=== PATIENT | male | born 1990 | race Caucasian/White ===

== ENCOUNTER 2022-05-14 11:18 | Emergency (ER) | payer SELFPAY ==
[2022-05-14 13:20] VITALS: BP 121/84; PULSE 80
== END 2022-05-14 13:20 | disposition home or self-care (01) ==
LOC: MW.ED 11:18
DX: H00.025 Hordeolum internum left lower eyelid (principal); F17.210 Nicotine dependence, cigarettes, uncomplicated
CPT/HCPCS: 99283

== ENCOUNTER 2023-05-09 03:44 | Emergency (ER) | payer BC ==
[2023-05-09] MEDS ORDERED: Morphine 4 MG/ML Syringe IVPUSH ONE (03:57)
[2023-05-09] MEDS ORDERED: Sodium Chloride 0.9% 1,000 ML IV ONE ×2 (03:57→05:15)
[2023-05-09] MEDS ORDERED: Ketorolac 30 MG/ML SDV IVPUSH ONE (03:57)
[2023-05-09] MEDS ORDERED: Ondansetron 4 MG/2 ML SDV IVPUSH ONE (03:57)
[2023-05-09 03:58] VITALS: PULSE 72
[2023-05-09] MEDS ORDERED: Ketorolac 30 MG/ML SDV ONE (04:02)
[2023-05-09 04:07] LABS: BASOPHILS ABSOLUTE AUTO 0.04 K/uL (0.00-0.20); BASOPHILS PERCENT AUTO 0.4 % (0.0-1.0); EOSINOPHILS ABSOLUTE AUTO 0.12 K/uL (0.00-0.45); EOSINOPHILS PERCENT AUTO 1.1 % (0.0-6.0); HEMOGLOBIN 15.5 g/dL (14.0-18.0); IMMATURE GRAN ABSOLUTE AUTO 0.03 K/uL (0.00-0.05); IMMATURE GRAN PERCENT AUTO 0.3 % (0.0-0.4); LYMPHOCYTES PERCENT AUTO 22.7 % (24.0-44.0); MEAN CORPUSCULAR HEMOGLOBIN 29.9 pg (28.0-32.0); MEAN CORPUSCULAR HGB CONC 34.4 g/dL (32.0-36.0); MEAN CORPUSCULAR VOLUME 86.9 fL (83.0-99.0); MEAN PLATELET VOLUME 9.2 fL (9.4-12.4); MONOCYTES ABSOLUTE AUTO 1.01 K/uL (0.00-0.80); MONOCYTES PERCENT AUTO 9.6 % (0.0-8.0); NEUTROPHILS ABSOLUTE AUTO 6.96 K/uL (1.80-7.70); NEUTROPHILS PERCENT AUTO 65.9 % (41.0-71.0); PLATELET COUNT,PLT 284 K/uL (150-400); RED BLOOD CELL COUNT 5.18 M/uL (4.52-5.90); WHITE BLOOD CELL COUNT,WBC 10.56 K/uL (3.9-11.3)
[2023-05-09 04:31] LABS: A/G RATIO 1.4 (0.9-1.6); ALBUMIN 4.1 g/dL (3.4-5.0); BILIRUBIN TOTAL 0.7 mg/dL (0.2-1.0); CALCIUM 9.4 mg/dL (8.5-10.1); CARBON DIOXIDE,CO2 28.9 mmol/L (21.0-32.0); CREATININE 1.2 mg/dL (0.8-1.3); EST CRCL DRUG DOSING (CG) 92.09 mL/min; POTASSIUM,K 3.4 mmol/L (3.5-5.1)
[2023-05-09] MEDS ORDERED: HYDROmorphone 1 MG/ML Syringe IVPUSH ONE (04:56)
[2023-05-09 06:13] LABS: APPEARANCE,URINE SLT CLOUDY; COLOR,URINE YELLOW; GLUCOSE,URINE NEGATIVE (NEGATIVE); KETONES,URINE NEGATIVE (NEGATIVE); LEUKOCYTE ESTERASE,URINE NEGATIVE (NEGATIVE); NITRITE,URINE NEGATIVE (NEGATIVE); OCCULT BLOOD,URINE LARGE (NEGATIVE); PROTEIN,URINE TRACE mg/dL (NEGATIVE); UROBILINOGEN,URINE 0.2 EU/dL (<2.0)
[2023-05-09 06:19] LABS: BILIRUBIN,URINE SMALL (NEGATIVE)
[2023-05-09 06:20] LABS: BACTERIA,URINE FEW (NEGATIVE); EPITHELIAL CELLS,URINE RARE (NONE-FEW); RBC,URINE 20-30 (0-2/HPF); WBC,URINE 0-4 (0-5/HPF)
[2023-05-09 06:32] VITALS: BP 137/77
== END 2023-05-09 06:31 | disposition home or self-care (01) ==
LOC: MW.ED 03:44
DX: N20.2 Calculus of kidney with calculus of ureter (principal)
CPT/HCPCS: 36415; 74176; 80053; 81001; 83690; 85025; 96361; 96374; 96375; 99284; J1170; J1885; J2270; J2405; J7030

== ENCOUNTER 2025-04-27 09:36 | Emergency (ER) | payer BC, MEDICAID ==
[2025-04-27 10:02] VITALS: BP 141/84; PULSE 82
== END 2025-04-27 10:47 | disposition home or self-care (01) ==
LOC: MW.ED 09:36
DX: Z13.9 Encounter for screening, unspecified (principal); D17.9 Benign lipomatous neoplasm, unspecified; Z79.899 Other long term (current) drug therapy
CPT/HCPCS: 99282; 99283

== ENCOUNTER 2025-05-10 06:45 | Day surgery (SDC) | payer MEDICAID ==
[2025-05-10] MEDS: Lactated Ringers 1,000 ML IV SCH (07:14)
[2025-05-10] MEDS ORDERED: Propofol 200 MG/20 ML SDV ONE (07:56)
[2025-05-10] MEDS ORDERED: Midazolam 1 MG/ML 2 ML SDV ONE (08:21)
[2025-05-10] MEDS ORDERED: fentaNYL 100 MCG/2 ML SDV ONE (09:04)
[2025-05-10] MEDS ORDERED: Lactated Ringers 1,000 ML IV SCH (09:30)
[2025-05-10 11:16] VITALS: BP 111/72; PULSE 55
== END 2025-05-10 10:00 | disposition home or self-care (01) ==
LOC: MW.SDS 06:45
PROVIDERS: ATTEND Surgery
DX: K62.5 Hemorrhage of anus and rectum (principal); F17.210 Nicotine dependence, cigarettes, uncomplicated; Z80.0 Family history of malignant neoplasm of digestive organs
CPT/HCPCS: 45378; J2003; J2250; J2704; J3010; J7120; 00811